=== PATIENT | female | born 1995 | race Caucasian/White ===

== ENCOUNTER 2024-06-05 13:57 | Outpatient (AMB) | payer OTHER, SELFPAY ==
--- NOTE | 2024-06-05 14:11 | MHC.PC.OV ---
Vital Signs 06/05/24 14:19 Height 5 ft 3.78 in Weight 185 lb BMI 32.0 BP 130/80 Blood Pressure Location Rt brachial Position Sitting Pulse 118 H Pulse Source Pulse Oximeter Temp 98.4 F Temp Source Oral Pulse Oximetry (%) 98 Intake Visit Reasons: est care/possible blood sugar issues Intake Note: New patient visit. Hasn't had a primary care in a long time. Elevated heart rate,shaky, brain fog, dissociated feeling after eating. Allergies No Known Allergies [No Known Allergies*] Allergy (Verified 06/05/24 14:15) Tobacco use date assessed: 06/05/24 Dental Screening Dental Screen Date: 06/05/24 Did you have a dental visit in the last 12 months?: Yes Did you have a dental problem in the last 6 months where you did not have access to dental care?: No Was dental information given to patient?: Patient has dentist HPI HPI Comments History of Present Illness Details The patient is a 28 year old female with a past medical history of ADD, headaches presenting to [facility] care. Patient follows with [facility] for ADD. She is stable on vyvanse She has been having frequent headaches. Sometimes wakes up with them, sometimes gets during the day. Dull pressure, sometimes pounds. bilateral temporal. Reports frequent daytime fatigue, has been told she snores. She had headaches in her teens. Has episodes following meals when she becomes lightheaded, sweaty, nauseous. She has checked her glucose and it has been normal . Hasn't checked BP. Denies associated rash, hives, vomiting, pruritis Needs special agent in charge ROS see HPI PHYSICAL EXAM: GENERAL: Alert and oriented x 3. NAD EYES: EOMI. Anicteric. HENT: Moist mucous membranes. No scleral icterus. No cervical lymphadenopathy. LUNGS: Clear to auscultation bilaterally. CARDIOVASCULAR: Regular rate and rhythm. No murmur. No JVD. ABDOMEN: Soft, non-tender +bs EXTREMITIES: No edema. Non-tender. SKIN: No rashes or lesions. Warm. NEUROLOGIC: No focal neurological deficits. CN II-XII grossly intact PSYCHIATRIC: Cooperative. Appropriate mood and affect [facility] Social History Housing: House Patient Tobacco Use Status: Former Tobacco user Cigarette Packs Per Day: 0.5 Years Smoked: 8 e-Cigarette/Vaping Use: Currently Using Second Hand Smoke Exposure: No service: Yes Current occupational status: employed Current occupation: computer help desk representative at a [employer] Current occupational exposures/hazards: No Cognitive needs: No Hearing needs: No Vision needs: Yes (glasses) Questionnaire PHQ-9 Over the last 2 weeks, how often have you been bothered by any of the following problems? 1. Little interest or pleasure in doing things: several days 2. Feeling down, depressed, or hopeless: several days 3. Trouble falling or staying asleep, or sleeping too much: nearly every day 4. Feeling tired or having little energy: nearly every day 5. Poor appetite or overeating: several days 6. Feeling bad about yourself - or that you are a failure or have let yourself or your family down: several days 7. Trouble concentrating on things, such as reading the newspaper or watching television: more than half the days 8. Moving or speaking so slowly that other people could have noticed. Or the opposite - being so fidgety or restless that you have been moving around a lot more than usual: several days 9. Thoughts that you would be better off or of hurting yourself in some way: not at all Total score: 13 Depression Screening Interpretation: Positive Depression Screening Follow-up: Existing condition and Community Mental Health Worker F/U Depression Screening Done: Yes 57884 - PHQ-9 Billing: Yes Source: Developed by Drs. Chepe Hutchinson, Umu Page, Matthew Archuleta and colleagues, with an educational fausto from [employer]. Thrive Questionnaire Date Thrive assessed: 05/25/24 I am a: Patient What is your living situation today?: I have a steady place to live Within the past 12 months, did the food you bought not last and you didn't have the money to get more?: Sometimes True Within the past 12 months, did you worry whether your food would run out before you got money to buy more?: Sometimes True Do you have trouble paying for medicines?: Yes Do you have trouble getting transportation to medical appointments?: No Do you have trouble paying your heating and electricity bill?: Yes Do you have trouble taking care of your child, family member or friend?: No Do you have trouble with day-to-day activities such as bathing, preparing meals, shopping, managing finances, etc.?: Yes Are you currently unemployed and looking for a job?: No Are you interested in more education?: No Please select the resources that you would like help with: None Currently or been in a relationship where the following occur: No concerns reported THRIVE Score: 3 AUDIT C Alcohol Use Questionnaire (AUDIT-C) 1. How often do you have a drink containing alcohol?: Monthly or less 2. How many drinks containing alcohol do you have on a typical day when you are drinking?: 3 or 4 3. How often do you have six or more drinks on one occasion?: Never Total Score: 2 Physical exam (Primary Care) Vital Signs: Last Vital Signs Temp 98.4 F 06/05/24 14:19 Pulse 118 H 06/05/24 14:19 BP 130/80 06/05/24 14:19 Pulse Ox 98 06/05/24 14:19 BMI result Body Mass Index 32.0 Tobacco/Smoking Status: Tobacco use Status Tobacco use date assessed 06/05/24 06/05/24 14:24 Patient Tobacco Use Status Former Tobacco user 06/05/24 14:24 e-Cigarette/Vaping Use Currently Using 06/05/24 14:24 PHQ-9: PHQ-9 Score PHQ-9: Total score 13 06/05/24 14:47 Depression Screening Interpretation: Positive Depression Screening Follow-up: Existing condition and Community Mental Health Worker F/U Thrive Assessment: Date of Thrive Assessment Date Thrive assessed 05/25/24 06/05/24 14:13 Currently or been in a relationship where the following occur: No concerns reported Results AMB Hemoglobin A1c AMB Hemoglobin A1c 5.2 % Last Edit by Jessica Hahn CMA on 06/05/24 16:13 Results Reviewed Results Reviewed: Laboratory Last Values Hgb A1c (Clinic) 5.2 % (4.0-6.0) 06/05/24 14:38 Coding Level of Care Code New Pt Level 4 (38644) Complex EM visit Add On G2211 Diagnoses Encounter to establish care Z76.89 Postprandial distress syndrome K30 Morning headache R51.9 Menses painful N94.6 Assessment & Plan Assessment & Plan (1) Encounter to establish care: Code(s): Z76.89 - Persons encountering health services in other specified circumstances Category: Medical Plan: 28 y.o to establish care. Past medical, surgical, social and family history reviewed. (2) Postprandial distress syndrome: Code(s): K30 - Functional dyspepsia Category: Medical Plan: Check blood pressure during these episodes-discussed possbile post prandial hypotension Potential food allergy though less likely (3) Morning headache: Code(s): R51.9 - Headache, unspecified Category: Medical Plan: check sleep study given LOVELACE, fatigue, snoring Trial imitex (4) Menses painful: Code(s): N94.6 - Dysmenorrhea, unspecified Category: Medical Plan: refer shiatsu therapist Orders: Orders AMB Hemoglobin A1c 06/05/24 R10.9 - Unspecified abdominal pain Comprehensive Met. Panel 06/05/24 N94.6 - Dysmenorrhea, unspecified, R00.0 - Tachycardia, unspecified, R42 - Dizziness and giddiness, Z76.89 - Persons encountering health services in other specified circumstances Lipid Panel 06/05/24 N94.6 - Dysmenorrhea, unspecified, R00.0 - Tachycardia, unspecified, R42 - Dizziness and giddiness, Z76.89 - Persons encountering health services in other specified circumstances TSH reflex Free T4 06/05/24 N94.6 - Dysmenorrhea, unspecified, R00.0 - Tachycardia, unspecified, R42 - Dizziness and giddiness, Z76.89 - Persons encountering health services in other specified circumstances Vitamin B12 and Folate 06/05/24 N94.6 - Dysmenorrhea, unspecified, R00.0 - Tachycardia, unspecified, R42 - Dizziness and giddiness, Z76.89 - Persons encountering health services in other specified circumstances Lyme IgG/IgM w/reflex to WB 06/05/24 N94.6 - Dysmenorrhea, unspecified, R00.0 - Tachycardia, unspecified, R42 - Dizziness and giddiness, Z76.89 - Persons encountering health services in other specified circumstances Complete Blood Count Auto Diff 06/05/24 N94.6 - Dysmenorrhea, unspecified, R00.0 - Tachycardia, unspecified, R42 - Dizziness and giddiness, Z76.89 - Persons encountering health services in other specified circumstances IRON PROFILE 06/05/24 N94.6 - Dysmenorrhea, unspecified, R00.0 - Tachycardia, unspecified, R42 - Dizziness and giddiness, Z76.89 - Persons encountering health services in other specified circumstances RT home sleep study 06/05/24 R06.83 - Snoring, R51.9 - Headache, unspecified, R53.83 - Other fatigue Referrals Allergy & Immunology Referral I95.89 - Other hypotension Medications: New sumatriptan succinate (Imitrex) take 1 tab at onset of headache; if no relief, may repeat 1 tab after at least 2 hrs; max = 2 tabs/24 hrs PO 30 tabs 3RF [id number] 50-325-40 mg 1 tab PO Q6H PRN 20 tabs 1RF pain
[2024-06-05 14:19] VITALS: BP 130/80; PULSE 118; TEMP 36.9; O2SAT 98; BMI 32.0
== END 2024-06-05 15:17 | disposition home or self-care (01) ==
PROVIDERS: PCP Hospitalist; Visit Provider Internal Medicine
DX: Z76.89 Persons encountering health services in other specified circumstances (principal); K30 Functional dyspepsia; R51.9 Headache, unspecified; N94.6 Dysmenorrhea, unspecified

== ENCOUNTER → 2024-06-05 13:57 | Outpatient (BNVA) | payer OTHER, SELFPAY | PROVIDERS: PCP Hospitalist; Visit Provider Internal Medicine | DX: Z76.89 Persons encountering health services in other specified circumstances (principal); K30 Functional dyspepsia; R51.9 Headache, unspecified; N94.6 Dysmenorrhea, unspecified; I95.89 Other hypotension | CPT/HCPCS: 83036; 96127; 99202 ==

== ENCOUNTER 2024-06-05 15:28 | Outpatient (REF) | payer OTHER, SELFPAY ==
[2024-06-05 17:44] LABS: MANUAL DIFF FLAG NO
[2024-06-05 18:01] LABS: Basophils Absolute Auto 0.1 X10*3/uL (0.0-0.2); Basophils Percent Auto 0.7 % (0-2); Eosinophils Absolute Auto 0.1 X10*3/uL (0.0-0.4); Eosinophils Percent Auto 0.5 % (0-4); Hematocrit 36.7 % (37.0-47.0); Hemoglobin 12.3 g/dl (12.0-16.0); Imm Gran Abs Auto 0.05 X10*3/uL (0.00-0.03); Imm Gran Pct Auto 0.5 % (0.0-0.4); Lymphocytes Absolute Auto 2.5 X10*3/uL (1.2-4.9); Lymphocytes Percent Auto 23.9 % (20-40); Mean Corpuscular HGB Conc 33.5 g/dl (31.0-35.0); Mean Corpuscular Hemoglobin 27.5 pg (27.0-33.0); Mean Corpuscular Volume 81.9 fL (80.0-98.0); Mean Platelet Volume 11.3 fL (9.4-12.3); Monocytes Absolute Auto 0.7 X10*3/uL (0.1-1.2); Neutrophils Absolute Auto 7.2 x10*3/uL (2.0-8.3); Neutrophils Percent Auto 67.4 % (45-73); Platelet Count 316 X10*3/uL (160-400); Red Blood Count 4.48 X10*6/uL (4.20-5.50); White Blood Count 10.6 X10*3/uL (4.8-10.8)
[2024-06-05 18:17] LABS: Alanine Aminotransferase 18 U/L (0-31); Albumin Level 4.4 g/dL (3.5-5.0); Alkaline Phosphatase 69 U/L (39-117); Anion Gap 12 (12-20); Aspartate Amino Transferase 30 U/L (5-31); Bilirubin Total 0.3 mg/dL (0.0-1.0); Blood Urea Nitrogen 8 mg/dL (9-16); Calcium 9.9 mg/dL (8.4-10.2); Carbon Dioxide 23 mmol/L (22-29); Chloride 108 mmol/L (96-108); Cholesterol 161 mg/dL (<200); Estimated Glomerular Filt Rate > 60; Glucose Random 106 mg/dL (60-115); HDL Cholesterol 43 mg/dL (>40); Iron 62 mcg/dL (30-160); LDL Cholesterol Calculated 82 mg/dL (<100); Percent Iron Saturation 20 % (15-50); Potassium 3.7 mmol/L (3.3-5.1); Sodium 139 mmol/L (135-145); Total Iron Binding Capacity 317 mcg/dL (228-428); Total Protein 7.4 g/dL (6.5-8.0); Triglycerides 184 mg/dL (<150); Unsaturated Iron Binding 255 ug/dL
[2024-06-05 18:35] LABS: TSH reflex Free T4 0.93 uIU/mL (0.32-4.0)
[2024-06-05 18:39] LABS: Folate 12.3 ng/mL (> or = 4.0); Vitamin B12 397 pg/mL (200-900)
[2024-06-07 01:28] LABS: Lyme Abs Screen <0.90 index
== END 2024-06-05 15:29 | disposition home or self-care (01) ==
LOC: HO.WFDLDS 15:28
PROVIDERS: Visit Provider Internal Medicine
DX: N94.6 Dysmenorrhea, unspecified (principal); R42 Dizziness and giddiness; R00.0 Tachycardia, unspecified; Z76.89 Persons encountering health services in other specified circumstances
CPT/HCPCS: 36415; 80053; 80061; 82607; 82746; 83540; 84443; 85025; 86617; 86618